=== PATIENT | female | born 1945 | race Caucasian/White ===

== ENCOUNTER 2020-01-16 10:36 | Inpatient (IN) ==
[2020-01-16] MEDS ORDERED: Isovue-370 500 ML BOTTLE IVP ONE (10:39)
[2020-01-16] MEDS ORDERED: Ipratropium/Albuterol Neb 3 ML IH ONE (11:11)
[2020-01-16 11:19] LABS: Basophils % 0.2 %; Eosinophils % 0.2 %; Hematocrit 35.1 % (35.3-44.9); Hemoglobin 11.5 g/dL (11.5-15.4); Immature Granulocytes % 0.6 % (0-4); Lymphocytes # 0.8 K/mcL (0.6-4.6); Lymphocytes % 6.4 %; Mean Corpuscular HGB Conc 32.8 g/dL (31.6-35.5); Mean Corpuscular Hemoglobin 30.7 pg (28.0-33.3); Mean Corpuscular Volume 93.6 fL (83.0-100.0); Mean Platelet Volume 10.1 fL (9.4-12.4); Monocytes # 1.5 K/mcL (0.0-1.3); Monocytes % 11.6 %; Neutrophils # 10.5 K/mcL (1.6-8.9); Platelet Count 215 K/mcL (140-400); Red Blood Count 3.75 M/mcL (3.82-4.97); Red Cell Distribution Width 14.2 % (11.5-14.5)
[2020-01-16] MEDS ORDERED: 0.9 % Sodium Chloride 1,000 ML IVC ONE (11:21)
[2020-01-16 11:26] LABS: Prothrombin Time 11.2 Seconds (9.4-12.1)
[2020-01-16] MEDS ORDERED: methylPREDNISolone 125 MG/2 ML VIAL IVP ONE (11:26)
[2020-01-16 11:36] LABS: Alanine Aminotransferase 23 Units/L (7-52); Alkaline Phosphatase 85 Units/L (34-104); Aspartate Amino Transferase 34 Units/L (13-39); BUN/Creatinine Ratio 38 (6-26); Bilirubin,Direct 0.1 mg/dL (0.0-0.2); Bilirubin,Indirect 0.4 mg/dL (0.0-1.0); Bilirubin,Total 0.5 mg/dL (0.3-1.0); Blood Urea Nitrogen 28 mg/dL (8-23); Calcium 8.4 mg/dL (8.6-10.3); Carbon Dioxide 30 mEq/L (23-29); Chloride 88 mEq/L (98-107); Glucose 104 mg/dL (70-105); Osmolality,Calculated 270 (280-300); Potassium 4.2 mEq/L (3.5-5.1); Sodium 127 mEq/L (136-145); Troponin I 0.03 ng/mL (< 0.04); eGFR For African Americans > 60 (> 60); eGFR For Non-African Americans > 60 (> 60)
[2020-01-16 12:29] LABS: Adenovirus Not Detected (Not Detect); Bordetella Pertussis Not Detected (Not Detect); Chlamydophila pneumoniae Not Detected (Not Detect); Coronavirus 229E Not Detected (Not Detect); Coronavirus HKU1 Not Detected (Not Detect); Coronavirus NL63 Not Detected (Not Detect); Coronavirus OC43 Not Detected (Not Detect); Human Metapneumovirus Not Detected (Not Detect); Human Rhinovirus/Enterovirus Not Detected (Not Detect); Influenza A Subtype 2009 H1 Not Detected (Not Detect); Influenza B Not Detected (Not Detect); Mycoplasma pneumoniae Not Detected (Not Detect); Parainfluenza Virus 1 Not Detected (Not Detect); Parainfluenza Virus 2 Not Detected (Not Detect); Parainfluenza Virus 3 Not Detected (Not Detect); Parainfluenza Virus 4 Not Detected (Not Detect); Respiratory Syncytial Virus Not Detected (Not Detect)
[2020-01-16] MEDS ORDERED: *HR* Heparin 5,000 UNIT/ML VIAL IVP ONE (12:40)
[2020-01-16] MEDS ORDERED: *HR* Heparin 5,000 UNIT/ML VIAL IVP PRN ×2 (12:40)
[2020-01-16] MEDS: Heparin 25,000UNIT/250ML 1/2NS 25,000 UNIT/250 ML IV.SOLN IVC SCH (13:04)
[2020-01-16] MEDS ORDERED: Ondansetron 4 MG/2 ML VIAL IVP PRN (13:16)
[2020-01-16] MEDS ORDERED: Naloxone 0.4 MG/ML INJ IVP PRN (13:16)
[2020-01-16 13:25] LABS: Hematocrit 34.7 % (35.3-44.9); Hemoglobin 11.3 g/dL (11.5-15.4); Mean Corpuscular HGB Conc 32.6 g/dL (31.6-35.5); Mean Corpuscular Hemoglobin 30.5 pg (28.0-33.3); Mean Corpuscular Volume 93.5 fL (83.0-100.0); Mean Platelet Volume 9.9 fL (9.4-12.4); Platelet Count 197 K/mcL (140-400); Red Blood Count 3.71 M/mcL (3.82-4.97); Red Cell Distribution Width 14.1 % (11.5-14.5); White Blood Count 11.1 K/mcL (4.3-11.1)
[2020-01-16 13:34] LABS: Prothrombin Time 11.5 Seconds (9.4-12.1)
[2020-01-16 13:35] LABS: Heparin anti-factor XA UFH < 0.04 IU/mL (0.30-0.70)
[2020-01-16] MEDS: Azithromycin 500 MG in 0.9 % Sodium Chloride 250 ML IVPB SCH (15:34)
[2020-01-16] MEDS: clonazePAM 0.5 MG TABLET PO SCH ×3 (15:35→20:14)
[2020-01-16] MEDS ORDERED: Gadolinium Contrast Agent (WT Based) IV PRN (15:40)
[2020-01-16] MEDS ORDERED: MethylPREDNISolone 40 MG/ML VIAL IVP SCH (16:00)
[2020-01-16] MEDS: Ipratropium/Albuterol Neb 3 ML IH SCH ×2 (16:22→19:47)
[2020-01-16] MEDS ORDERED: Ipratropium/Albuterol Neb 3 ML IH SCH (17:00)
[2020-01-16] MEDS: Budesonide/Formoterol 160/4.5 1 PUFF INH IH SCH ×2 (19:48→19:50)
[2020-01-16] MEDS: Mirtazapine 15 MG TABLET PO SCH (20:15)
[2020-01-16] MEDS: *HR* HYDROcodone/Acet 5/325 mg TABLET PO PRN (22:40)
[2020-01-17] MEDS: Ipratropium/Albuterol Neb 3 ML IH SCH ×6 (00:13→20:17)
[2020-01-17 02:47] LABS: Basophils % 0.1 %; Hematocrit 33.2 % (35.3-44.9); Immature Granulocytes % 0.8 % (0-4); Lymphocytes # 0.3 K/mcL (0.6-4.6); Lymphocytes % 4.1 %; Mean Corpuscular HGB Conc 33.1 g/dL (31.6-35.5); Mean Corpuscular Hemoglobin 30.6 pg (28.0-33.3); Mean Corpuscular Volume 92.2 fL (83.0-100.0); Mean Platelet Volume 10.2 fL (9.4-12.4); Monocytes # 0.3 K/mcL (0.0-1.3); Monocytes % 4.4 %; Neutrophils # 6.7 K/mcL (1.6-8.9); Platelet Count 219 K/mcL (140-400); Red Cell Distribution Width 14.1 % (11.5-14.5); Segmented Neutrophils % 90.6 %; White Blood Count 7.3 K/mcL (4.3-11.1)
[2020-01-17 03:02] LABS: BUN/Creatinine Ratio 42 (6-26); Blood Urea Nitrogen 28 mg/dL (8-23); Calcium 8.3 mg/dL (8.6-10.3); Carbon Dioxide 30 mEq/L (23-29); Chloride 92 mEq/L (98-107); Glucose 211 mg/dL (70-105); Magnesium 1.8 mg/dL (1.6-2.6); Osmolality,Calculated 282 (280-300); Phosphorous 3.4 mg/dL (2.7-4.5); Potassium 3.9 mEq/L (3.5-5.1); Sodium 130 mEq/L (136-145); eGFR For African Americans > 60 (> 60); eGFR For Non-African Americans > 60 (> 60)
[2020-01-17] MEDS: Budesonide/Formoterol 160/4.5 1 PUFF INH IH SCH ×2 (07:14→20:17)
[2020-01-17] MEDS: predniSONE 20 MG TABLET PO SCH (08:55)
[2020-01-17] MEDS: amLODIPine 5 MG TABLET PO SCH (08:55)
[2020-01-17] MEDS: clonazePAM 0.5 MG TABLET PO SCH ×3 (08:55→21:19)
[2020-01-17] MEDS ORDERED: NON-FORMULARY MEDICATION 1 EACH EACH (Ezetimibe [Zetia] 10 MG) PO SCH (09:00)
[2020-01-17] MEDS: Heparin 25,000UNIT/250ML 1/2NS 25,000 UNIT/250 ML IV.SOLN IVC SCH (13:21)
[2020-01-17] MEDS: Azithromycin 500 MG in 0.9 % Sodium Chloride 250 ML IVPB SCH (13:56)
[2020-01-17] MEDS: Mirtazapine 15 MG TABLET PO SCH (21:19)
[2020-01-18] MEDS: Heparin 25,000UNIT/250ML 1/2NS 25,000 UNIT/250 ML IV.SOLN IVC SCH (00:02)
[2020-01-18] MEDS: Ipratropium/Albuterol Neb 3 ML IH SCH ×7 (00:28→23:52)
[2020-01-18 01:48] LABS: Basophils % 0.2 %; Hematocrit 36.4 % (35.3-44.9); Hemoglobin 11.8 g/dL (11.5-15.4); Immature Granulocytes % 1.3 % (0-4); Lymphocytes # 0.8 K/mcL (0.6-4.6); Lymphocytes % 5.1 %; Mean Corpuscular HGB Conc 32.4 g/dL (31.6-35.5); Mean Corpuscular Hemoglobin 30.3 pg (28.0-33.3); Mean Corpuscular Volume 93.3 fL (83.0-100.0); Mean Platelet Volume 10.5 fL (9.4-12.4); Monocytes # 1.2 K/mcL (0.0-1.3); Monocytes % 7.9 %; Neutrophils # 12.8 K/mcL (1.6-8.9); Platelet Count 279 K/mcL (140-400); Red Cell Distribution Width 14.4 % (11.5-14.5); Segmented Neutrophils % 85.5 %
[2020-01-18 02:11] LABS: BUN/Creatinine Ratio 50 (6-26); Blood Urea Nitrogen 30 mg/dL (8-23); Calcium 8.5 mg/dL (8.6-10.3); Carbon Dioxide 31 mEq/L (23-29); Chloride 95 mEq/L (98-107); Glucose 171 mg/dL (70-105); Magnesium 1.8 mg/dL (1.6-2.6); Osmolality,Calculated 288 (280-300); Potassium 4.2 mEq/L (3.5-5.1); Sodium 134 mEq/L (136-145); eGFR For African Americans > 60 (> 60); eGFR For Non-African Americans > 60 (> 60)
[2020-01-18] MEDS: Budesonide/Formoterol 160/4.5 1 PUFF INH IH SCH ×2 (07:27→19:38)
[2020-01-18] MEDS: amLODIPine 5 MG TABLET PO SCH (10:32)
[2020-01-18] MEDS: clonazePAM 0.5 MG TABLET PO SCH ×3 (10:32→19:50)
[2020-01-18] MEDS: predniSONE 20 MG TABLET PO SCH (10:32)
[2020-01-18] MEDS: Sennosides/Docusate Sodium TABLET PO SCH ×2 (10:33→19:53)
[2020-01-18] MEDS: Nicotine 21 MG PATCH.TD24 TD SCH (10:33)
[2020-01-18] MEDS: Apixaban 5 MG TABLET PO SCH ×2 (12:35→19:51)
[2020-01-18] MEDS: Azithromycin 500 MG in 0.9 % Sodium Chloride 250 ML IVPB SCH (12:36)
[2020-01-18] MEDS: Mirtazapine 15 MG TABLET PO SCH (19:49)
[2020-01-18] MEDS: *HR* HYDROcodone/Acet 5/325 mg TABLET PO PRN (21:54)
[2020-01-19] MEDS: Ipratropium/Albuterol Neb 3 ML IH SCH ×3 (03:08→11:03)
[2020-01-19] MEDS: Budesonide/Formoterol 160/4.5 1 PUFF INH IH SCH (07:34)
[2020-01-19 07:58] LABS: BUN/Creatinine Ratio 56 (6-26); Blood Urea Nitrogen 29 mg/dL (8-23); Calcium 8.5 mg/dL (8.6-10.3); Carbon Dioxide 39 mEq/L (23-29); Chloride 96 mEq/L (98-107); Glucose 119 mg/dL (70-105); Magnesium 1.7 mg/dL (1.6-2.6); Osmolality,Calculated 291 (280-300); Potassium 4.3 mEq/L (3.5-5.1); Sodium 137 mEq/L (136-145); eGFR For African Americans > 60 (> 60); eGFR For Non-African Americans > 60 (> 60)
[2020-01-19] MEDS: clonazePAM 0.5 MG TABLET PO SCH (09:25)
[2020-01-19] MEDS: predniSONE 20 MG TABLET PO SCH (09:26)
[2020-01-19] MEDS: Sennosides/Docusate Sodium TABLET PO SCH (09:27)
[2020-01-19] MEDS: Apixaban 5 MG TABLET PO SCH (09:27)
[2020-01-19] MEDS: Nicotine 21 MG PATCH.TD24 TD SCH (09:27)
[2020-01-19] MEDS: amLODIPine 5 MG TABLET PO SCH (09:27)
[2020-01-19 11:16] VITALS: BP 128/53
== END 2020-01-19 12:32 | DRG 175 ==
LOC: 2ANU 10:36 → EMEROOARM 10:36 → SUATTDRO 13:03 → 2ANU 13:49 → SUATTDRO 01-17 15:13
PROVIDERS: ADMIT Student in an Organized Health Care Education/Training Program; ATTEND Internal Medicine